=== PATIENT | female | born 1980 | race Caucasian/White ===

== ENCOUNTER 2016-06-22 08:25 | Emergency (ER) | payer OTHER ==
[2016-06-22] MEDS ORDERED: BABY ASPIRIN 81 MG CHEW PO ONE (08:29)
[2016-06-22] MEDS ORDERED: Pepcid 20 MG VIAL IV ONE ×2 (08:29→08:34)
[2016-06-22] MEDS ORDERED: Lopressor 25MG Tab PO ONE (08:29)
[2016-06-22] MEDS ORDERED: NITRO-BID 2% UD PACKETS TOP ONE (08:29)
[2016-06-22] MEDS ORDERED: Sodium Chloride 0.9% 1000 ML 1,000 ML IV SCH (08:30)
[2016-06-22] MEDS ORDERED: BABY ASPIRIN 81 MG CHEW ONE (08:34)
[2016-06-22] MEDS ORDERED: NITRO-BID 2% UD PACKETS ONE (08:34)
[2016-06-22] MEDS ORDERED: Lopressor 25MG Tab ONE (08:34)
[2016-06-22] MEDS ORDERED: Sodium Chloride 0.9% 1000 ML 1,000 ML ONE (08:35)
--- NOTE | 2016-06-22 08:36 | ERPHSYRPT ---
- History of Present Illness Time Seen by Provider: 06/22/16 08:29 Historian: patient, family Exam Limitations: no limitations Physician History: chest pain since Saturday; worse when breathes or lays down; non-productive cough; n o travel/11/26; no N&V; no sweats or fever; family ill with gi flu; no meds take for pain; getting worse; no prior hx; strong family hx of heart Timing/Duration: today (worse), day(s) (3), gradual onset, worse Activities at Onset: rest Quality: aching, burning Location: substernal Chest Pain Radiation: no radiation Severity of Pain-Max: severe (7/10) Severity of Pain-Current: moderate (6/10) Modifying Factors: Improves With: breathing (aggravate), coughing (worsens), lying down (worsens) Associated Symptoms: heartburn, cough, hurts to breathe Prior Chest Pain/Cardiac Workup: no prior chest pain Nitro Today/Relief: no nitro taken today, provided by ED Aspirin Treatment Today: no aspirin today, provided by ED Allergies/Adverse Reactions: No Known Drug Allergies Allergy (Verified 06/22/16 08:38) Home Medications: Metoprolol Tartrate 25 mg [Lopressor 25MG Tab] 25 mg PO DAILY 04/03/14 [ History] - Review of Systems Constitutional: No Symptoms Eyes: No Symptoms Ears, Nose, & Throat: No Symptoms Respiratory: Cough, No Cyanosis, No Dyspnea, No Wheezing Cardiac: Chest Pain, No Edema, No Palpitations, No Syncope Abdominal/Gastrointestinal: No Abdominal Pain, No Nausea, No Vomiting, No Diarrhea Genitourinary Symptoms: No Symptoms Musculoskeletal: No Symptoms Skin: No Symptoms Neurological: No Symptoms Psychological: No Symptoms Endocrine: No Symptoms Hematologic/Lymphatic: No Symptoms Immunological/Allergic: No Symptoms - Past Medical History Pertinent Past Medical History: Yes (stroke) Neurological History: Stroke ENT History: No Pertinent History Cardiac History: Other Respiratory History: No Pertinent History Endocrine Medical History: No Pertinent History Musculoskeletal History: Fibromyalgia GI Medical History: No Pertinent History History: No Pertinent History Psycho-Social History: No Pertinent History Female Reproductive Disorders: No Pertinent History Other Medical History: protien c defficiency, mutated blood genes. - Past Surgical History Past Surgical History: Yes (, breast bx) Neuro Surgical History: No Pertinent History Cardiac: No Pertinent History Respiratory: No Pertinent History Gastrointestinal: No Pertinent History Genitourinary: No Pertinent History Musculoskeletal: No Pertinent History Female Surgical History: Section - Social History Smoking Status: Former smoker How long have you smoked: quit 2007 Exposure to second hand smoke: No Alcohol Use: Socially Drug Use: none Significant Family History: heart disease, hypertension - Female History Hx Now: No - Physical Exam General Appearance: moderate distress, alert Eye Exam: PERRL/EOMI, eyes nml inspection, No photophobia Ears, Nose, Throat Exam: normal ENT inspection, TMs normal, pharynx normal, moist mucous membranes Neck Exam: normal inspection, non-tender, supple, full range of motion, No meningismus, No carotid bruit, No JVD Respiratory Exam: normal breath sounds, lungs clear, airway intact, No chest tenderness, No respiratory distress Cardiovascular Exam: regular rate/rhythm, normal heart sounds, normal peripheral pulses, capillary refill <2 sec, No murmur, No friction rub Gastrointestinal/Abdomen Exam: soft, normal bowel sounds, No tenderness, No distention, No guarding, No pulsatile mass, No organomegaly Pelvic Exam: not done Rectal Exam: deferred Back Exam: normal inspection, normal range of motion, No CVA tenderness, No rash Extremity Exam: normal inspection, normal range of motion, pelvis stable, No stew's sign, No pedal edema Neurologic Exam: alert, oriented x 3, cooperative, assessment rn II-XII nml as tested, normal mood/affect, nml cerebellar function, nml station & gait, sensation nml Skin Exam: normal color, warm, dry, No rash, No cyanosis SpO2 Interpretation: normal SpO2: 99 Oxygen Delivery: Room Air - Course Nursing assessment & vital signs reviewed: Yes EKG Interpreted by Me: RATE (92), Sinus Rhythm, NORMAL AXIS, NORMAL INTERVALS, NORMAL QRS, NORMAL ST-T, Other (no change from old ekg done 03-29-14) Rhythm Strip: Rate (92), Normal Sinus Rhythm - Radiology Exams Chest X-ray Interpretation: Reviewed by me, Teleradiologist Report, Negative, No Pneumonia, No Pneumothorax, Nml Heart Size, No Infiltrates, Nml Mediastinum Ordered Tests: Active Orders 24 hr Category Date Time Status Telecommunications Field Technician STAT Care 06/22/16 08:29 Active EKG-ER Only STAT Care 06/22/16 08:29 Active IV Insertion STAT Care 06/22/16 08:29 Active Oxygen-ED Only NASAL CANNULA 2 lpm Care 06/22/16 08:29 Active Pulse Oximetry (ED) STAT Care 06/22/16 08:29 Active Re-Check Vital Signs STAT Care 06/22/16 08:29 Active CHEST 1 VIEW (PORTABLE) Stat Exams 06/22/16 08:30 Completed CBC W DIFF Stat Lab 06/22/16 08:30 Completed CMP Stat Lab 06/22/16 08:30 Completed D-DIMER QUANTITATION Stat Lab 06/22/16 08:30 Completed NT PRO BNP Stat Lab 06/22/16 08:30 Completed PROTIME WITH INR Stat Lab 06/22/16 08:30 Completed TROPONIN Q3H Lab 06/22/16 08:30 Completed TROPONIN Q3H Lab 06/22/16 11:30 Ordered TROPONIN Q3H Lab 06/22/16 14:30 Ordered TROPONIN Q3H Lab 06/22/16 17:30 Ordered TROPONIN Q3H Lab 06/22/16 20:30 Ordered Medication Summary Generic Name Dose Route Start Last Admin Trade Name Freq PRN Reason Stop Dose Admin Sodium Chloride 1,000 mls @ 50 mls/hr 06/22/16 08:30 06/22/16 08:36 Sodium Chloride 0.9% 1000 Ml IV 07/22/16 08:29 50 mls/hr .Q20H RUTH Administration Discontinued Medications Generic Name Dose Route Start Last Admin Trade Name Freq PRN Reason Stop Dose Admin Aspirin 324 mg 06/22/16 08:29 06/22/16 08:37 Baby Aspirin 81 Mg Chew PO 06/22/16 08:30 324 mg STAT ONE Administration Aspirin Confirm 06/22/16 08:34 Baby Aspirin 81 Mg Chew Administered 06/22/16 08:35 Dose 324 mg .ROUTE .STK-MED ONE Famotidine 20 mg 06/22/16 08:29 06/22/16 08:37 Pepcid 20 Mg Vial IV 06/22/16 08:30 20 mg STAT ONE Administration Famotidine Confirm 06/22/16 08:34 Pepcid 20 Mg Vial Administered 06/22/16 08:35 Dose 20 mg IV .STK-MED ONE Sodium Chloride Confirm 06/22/16 08:35 Sodium Chloride 0.9% 1000 Ml Administered 06/22/16 08:36 Dose 1,000 mls @ ud .ROUTE .STK-MED ONE Metoprolol Tartrate 25 mg 06/22/16 08:29 06/22/16 08:37 Lopressor 25mg Tab PO 06/22/16 08:30 25 mg STAT ONE Administration Metoprolol Tartrate Confirm 06/22/16 08:34 Lopressor 25mg Tab Administered 06/22/16 08:35 Dose 25 mg .ROUTE .STK-MED ONE Nitroglycerin 1 gm 06/22/16 08:29 06/22/16 08:37 Nitro-Bid 2% Ud Packets TOP 06/22/16 08:30 1 gm STAT ONE Administration Nitroglycerin Confirm 06/22/16 08:34 Nitro-Bid 2% Ud Packets Administered 06/22/16 08:35 Dose 1 gm .ROUTE .STK-MED ONE Lab/Rad Data: Laboratory Result Diagrams 06/22/16 08:30 06/22/16 08:30 Laboratory Results 06/22/16 06/22/16 06/22/16 Range/Units 08:30 08:30 08:30 WBC (4.0-10.5) K/mm3 RBC (4.1-5.4) M/mm3 Hgb (12.0-16.0) gm/dl Hct (35-47) % MCV (78-100) fl MCH (26-32) pg MCHC (32-36) g/dl RDW (11.5-14.0) % Plt Count (150-450) K/mm3 MPV (6-9.5) fl Gran % (36.0-66.0) % Lymphocytes % (24.0-44.0) % Monocytes % (0.0-12.0) % Eosinophils % (0.00-5.0) % Basophils % (0.0-0.4) % Basophils # (0-0.4) INR 1.09 (0.8-3.0) D-Dimer 0.237 (0.00-0.49) mg/L Sodium 139 (136-145) mEq/L Potassium 4.2 (3.5-5.1) mEq/L Chloride 102 (98-107) mEq/L Carbon Dioxide 23.1 (21-32) mEq/L Anion Gap 17.7 H (5-15) MEQ/L BUN 11 (9-20) mg/dL Creatinine 0.67 (0.55-1.30) mg/dl Estimated GFR > 60 ML/MIN Glucose 100 (70-110) MG/DL Calcium 9.4 (8.5-10.1) mg/dL Total Bilirubin 0.4 (0.2-1.0) mg/dL AST 26 (15-37) U/L ALT 27 (12-78) U/L Alkaline Phosphatase 78 (46-116) U/L Troponin I < 0.017 (0.000-0.056) ng/ml NT-Pro-B Natriuret Pep < 5.0 (0-125) pg/ml Serum Total Protein 7.6 (6.4-8.2) gm/dL Albumin 4.2 (3.4-5.0) g/dL 06/22/16 Range/Units 08:30 WBC 9.1 (4.0-10.5) K/mm3 RBC 4.35 (4.1-5.4) M/mm3 Hgb 13.5 (12.0-16.0) gm/dl Hct 40.9 (35-47) % MCV 94.0 (78-100) fl MCH 31.0 (26-32) pg MCHC 33.0 (32-36) g/dl RDW 12.8 (11.5-14.0) % Plt Count 233 (150-450) K/mm3 MPV 11.2 H (6-9.5) fl Gran % 74.4 H (36.0-66.0) % Lymphocytes % 14.2 L (24.0-44.0) % Monocytes % 10.1 (0.0-12.0) % Eosinophils % 1.2 (0.00-5.0) % Basophils % 0.1 (0.0-0.4) % Basophils # 0.01 (0-0.4) INR (0.8-3.0) D-Dimer (0.00-0.49) mg/L Sodium (136-145) mEq/L Potassium (3.5-5.1) mEq/L Chloride (98-107) mEq/L Carbon Dioxide (21-32) mEq/L Anion Gap (5-15) MEQ/L BUN (9-20) mg/dL Creatinine (0.55-1.30) mg/dl Estimated GFR ML/MIN Glucose (70-110) MG/DL Calcium (8.5-10.1) mg/dL Total Bilirubin (0.2-1.0) mg/dL AST (15-37) U/L ALT (12-78) U/L Alkaline Phosphatase (46-116) U/L Troponin I (0.000-0.056) ng/ml NT-Pro-B Natriuret Pep (0-125) pg/ml Serum Total Protein (6.4-8.2) gm/dL Albumin (3.4-5.0) g/dL reviewed - Progress Progress: improved (after meds), re-examined (afdter meds and xr) Air Movement: good Progress Note: 06/22/16 08:37 EKG done and wnl; no acute changes; vs ok; IV started; )2 applied, meds ordered , xr and lab pending; will monitor and recheck 06/22/16 08:46 cbc wnl; cxr pending; meds just given will monitor and recheck 06/22/16 09:14 rechecked; vs ok; pain improving but still present; slight tenderness with palpation left 2 & 3rd Costosternal margin; D dimer and INR wnl; CXR NAD; other labs pending; will continue to monitor and recheck 06/22/16 09:29 rechecked and smiling and improved; troponin wnl; discussed treatment plan, answered questions; instructions given to stop smoking Blood Culture(s) Obtained: No Antibiotics given: No Counseled pt/family regarding: lab results, diagnosis, need for follow-up, rad results, smoking cessation - Departure Time of Disposition: 09:30 Departure Disposition: Home Clinical Impression: Chest pain made worse by breathing Condition: Good Critical Care Time: No Referrals: ABBEY SHEA [Primary Care Provider] - Instructions: Chest Pain Additional Instructions: stop smoking; rest; wear a mask in cold weather, hydrate; take meds; FU LMD Follow-up with family doctor as directed. Call for appointment. Return if any problems. If you smoke please stop. Call or follow up with your family doctor for assistance if you need it to stop. Please wear your seatbelt when driving. Have a nice day. Thank you for allowing us to participate in your care today. :o) Dr Stephen Luu Prescriptions: Naproxen Sodium [Anaprox Ds] 550 mg PO Q8H PRN PRN #20 tablet PRN Reason: Pain
[2016-06-22 08:41] LABS: BASOPHIL % 0.1 % (0.0-0.4); Eosinophil % 1.2 % (0.00-5.0); Granulocytes % 74.4 % (36.0-66.0); Lymphocytes % 14.2 % (24.0-44.0); Mean Platelet Volume 11.2 fl (6-9.5); Monocytes % 10.1 % (0.0-12.0); Platelet Count 233 K/mm3 (150-450); Red Blood Count 4.35 M/mm3 (4.1-5.4); Red Cell Distribution Width 12.8 % (11.5-14.0); White Blood Count 9.1 K/mm3 (4.0-10.5)
[2016-06-22 08:47] VITALS: O2SAT 99
[2016-06-22 09:02] LABS: INR 1.09 (0.8-3.0); PROTIME 12.2 SECONDS (9.95-12.35)
--- NOTE | 2016-06-22 09:02 | XRAY ---
Indication: Chest pain. Comparison: None Portable chest demonstrates normal heart, lungs, and bony thorax.
[2016-06-22 09:05] VITALS: BP 117/73; PULSE 86
[2016-06-22 09:12] LABS: ALBUMIN 4.2 g/dL (3.4-5.0); ALKALINE PHOSPHATASE 78 U/L (46-116); ANION GAP 17.7 MEQ/L (5-15); BILIRUBIN,TOTAL 0.4 mg/dL (0.2-1.0); BLOOD UREA NITROGEN 11 mg/dL (9-20); CHLORIDE 102 mEq/L (98-107); Carbon Dioxide 23.1 mEq/L (21-32); Glucose 100 MG/DL (70-110); Potassium 4.2 mEq/L (3.5-5.1); SGOT/AST 26 U/L (15-37); SGPT/ALT 27 U/L (12-78); SODIUM 139 mEq/L (136-145); Total Protein 7.6 gm/dL (6.4-8.2)
== END 2016-06-22 09:44 | disposition home or self-care (01) ==
LOC: ED 08:25
DX: R07.1 Chest pain on breathing (principal)
CPT/HCPCS: 36000; 36415; 71010; 80053; 83880; 84484; 85025; 85379; 85610; 93005; 93041; 96360; 96374; 99283; 99284; 99285

== ENCOUNTER 2021-08-27 20:58 | Emergency (ER) | payer OTHER ==
[2021-08-27] MEDS ORDERED: DUONEB 0.5-3 MG/3 ml Neb IH ONE ×2 (21:53→22:24)
--- NOTE | 2021-08-27 22:00 | ERPHSYRPT ---
- History of Present Illness Time Seen by Provider: 08/27/21 21:04 Patient Subjective Stated Complaint: Pt states " I was diagnosed by my family doctor with anemia a couple weeks ago. Today I started feeling short of breath when I got up to do stuff around the house." Triage Nursing Assessment: Pt alert and oriented x3, pt denies chest pain or any cardiac issues, Pt c/o shortness of breath upon excertion that started today and weakness, pt was seen at Dr. Tadeo's office and did blood work. According to patient the her hemoglobin was 9.8 and had low iron count, pt was put on a vitamin D pill that she takes weekly and an iron pill that she takes daily, skin color warm, pink, and dry, denies pain at this time Physician History: 41 years old female with history of chronic anemia presented in the ER with chief complaint of shortness of breath for the last few days. Patient reports getting short of breath with activity which is lately getting worse and better with resting. Patient denies any chest pain pressure tightness, wheezing. Denies any cough or fever/chills. Timing/Duration: gradual onset, worse Activities at Onset: activity Severity of Dyspnea-Max: moderate Severity of Dyspnea-Current: moderate Modifying Factors: Improves With: rest. Worsens With: activity Associated Symptoms: No wheezing, No heaviness, No painful breathing, No productive cough, No tightness Allergies/Adverse Reactions: No Known Drug Allergies Allergy (Verified 06/22/16 08:38) Home Medications: Cholecalciferol (Vitamin D3) [Vitamin D] 08/27/21 [History] Iron 65 mg PO DAILY 08/27/21 [History] Hx Tetanus, Diphtheria Vaccination/Date Given: No (4 YRS AGO) Hx Influenza Vaccination/Date Given: No Hx Pneumococcal Vaccination/Date Given: No Immunizations Up to Date: Yes Travel Risk - International Travel Have you traveled outside of the country in past 3 weeks: No - Coronavirus Screening Are you exhibiting any of the following symptoms?: No Close contact with a COVID-19 positive Pt in past 14-21 Days: No - Vaccine Status Have you recieved a Covid-19 vaccination: No - Review of Systems Constitutional: No Symptoms Eyes: No Symptoms Ears, Nose, & Throat: No Symptoms Respiratory: Dyspnea, Dyspnea on Exertion ([place]) Cardiac: No Symptoms Abdominal/Gastrointestinal: No Symptoms Genitourinary Symptoms: No Symptoms Musculoskeletal: No Symptoms Skin: No Symptoms Neurological: No Symptoms Psychological: No Symptoms Endocrine: No Symptoms Hematologic/Lymphatic: No Symptoms Immunological/Allergic: No Symptoms - Past Medical History Pertinent Past Medical History: Yes (stroke) Neurological History: Stroke ENT History: No Pertinent History Cardiac History: Other Respiratory History: No Pertinent History Endocrine Medical History: No Pertinent History Musculoskeletal History: Fibromyalgia GI Medical History: No Pertinent History History: No Pertinent History Psycho-Social History: No Pertinent History Female Reproductive Disorders: No Pertinent History Other Medical History: protien c defficiency, mutated blood genes, tachycardia - Past Surgical History Past Surgical History: Yes (, breast bx) Neuro Surgical History: No Pertinent History Cardiac: No Pertinent History Respiratory: No Pertinent History Gastrointestinal: No Pertinent History Genitourinary: No Pertinent History Musculoskeletal: No Pertinent History Female Surgical History: Section - Social History Smoking Status: Current every day smoker How long have you smoked: quit 2007 Exposure to second hand smoke: No Alcohol Use: Socially Drug Use: none Patient Lives Alone: No Significant Family History: heart disease, hypertension - Female History Hx Last Menstrual Period: 08/27/2021 Hx Now: No - Nursing Vital Signs Nursing Vital Signs: Initial Vital Signs Temperature 99.0 F 08/27/21 21:03 Pulse Rate 112 H 08/27/21 21:03 Respiratory Rate 26 H 08/27/21 21:03 Blood Pressure 162/91 08/27/21 21:03 O2 Sat by Pulse Oximetry 99 08/27/21 21:03 Pain Scale Pain Intensity 0 - Physical Exam General Appearance: no apparent distress, alert, anxiety Eye Exam: PERRL/EOMI, eyes nml inspection Ears, Nose, Throat Exam: hearing grossly normal, normal ENT inspection, normal pharynx Neck Exam: normal inspection, non-tender, supple, full range of motion Respiratory Exam: normal breath sounds, lungs clear Cardiovascular/Chest Exam: normal heart sounds, regular rate/rhythm Abdominal/Gastrointestinal Exam: soft, normal bowel sounds, No tenderness Extremity Exam: non-tender, normal range of motion Neurologic Exam: alert, oriented x 3, cooperative Skin Exam: normal color SpO2 Interpretation: normal SpO2: 98 O2 Delivery: Room Air - Course EKG Interpreted by Me: RATE (106), Sinus Tach, NORMAL AXIS, NORMAL INTERVALS, Non-specific ST Changes Ordered Tests: Active Orders 24 hr Category Date Time Status IV Insertion STAT Care 08/27/21 21:14 Completed CHEST 1 VIEW (PORTABLE) Stat Exams 08/27/21 21:55 Taken CHEST WITH CONTRAST [CT] Routine Exams 08/28/21 00:41 Taken CBC W DIFF Stat Lab 08/27/21 22:21 Completed CMP Stat Lab 08/27/21 22:21 Completed D-DIMER QUANTITATIVE Stat Lab 08/27/21 22:00 Completed MAGNESIUM Stat Lab 08/27/21 22:21 Completed NT PRO BNP Stat Lab 08/27/21 22:21 Completed TROPONIN Q3H Lab 08/27/21 22:21 Completed TROPONIN Q3H Lab 08/28/21 01:06 Completed Respiratory Therapy Assessment DAILY RT 08/27/21 22:27 Completed Medication Summary Discontinued Medications Generic Name Dose Route Start Last Admin Trade Name Freq PRN Reason Stop Dose Admin Albuterol/Ipratropium 3 ml 08/27/21 21:53 08/27/21 22:25 Ipratropium/Albuterol Sulfate 3 Ml Ampul.Neb IH 08/27/21 21:54 3 ml STAT ONE Administration Albuterol/Ipratropium Confirm 08/27/21 22:24 Ipratropium/Albuterol Sulfate 3 Ml Ampul.Neb Administered 08/27/21 22:25 Dose 3 ml IH .STK-MED ONE Lab/Rad Data: Laboratory Result Diagrams 08/27/21 22:21 08/27/21 22:21 Laboratory Results 08/28/21 08/27/21 08/27/21 Range/Units 01:06 22:21 22:21 WBC (4.0-10.5) K/mm3 RBC (4.1-5.4) M/mm3 Hgb (12.0-16.0) gm/dl Hct (35-47) % MCV (78-100) fl MCH (26-32) pg MCHC (32-36) g/dl RDW (11.5-14.0) % Plt Count (150-450) K/mm3 MPV (7.5-11.0) fl Gran % (36.0-66.0) % Eos # (Auto) (0-0.5) Absolute Lymphs (auto) (1.0-4.6) Absolute Monos (auto) (0.0-1.3) Lymphocytes % (24.0-44.0) % Monocytes % (0.0-12.0) % Eosinophils % (0.00-5.0) % Basophils % (0.0-0.4) % Absolute Granulocytes (1.4-6.9) Basophils # (0-0.4) D-Dimer (215-500) ng/mL Sodium 140 (137-145) mmol/L Potassium 3.6 (3.5-5.1) mmol/L Chloride 106 (98-107) mmol/L Carbon Dioxide 20 L (22-30) mmol/L Anion Gap 17.4 H (5-15) MEQ/L BUN 15 (7-17) mg/dL Creatinine 0.69 (0.52-1.04) mg/dL Estimated GFR > 60.0 ML/MIN Glucose 112 H (74-106) mg/dL Calcium 9.3 (8.4-10.2) mg/dL Magnesium 2.1 (1.6-2.3) mg/dL Total Bilirubin 0.30 (0.2-1.3) mg/dL AST 33 (14-36) U/L ALT 24 (0-35) U/L Alkaline Phosphatase 80 (38-126) U/L Troponin I < 0.012 < 0.012 (0.000-0.034) ng/mL NT-Pro-B Natriuret Pep 26.8 (0-450) pg/mL Serum Total Protein 7.2 (6.3-8.2) g/dL Albumin 4.3 (3.5-5.0) g/dL 08/27/21 08/27/21 Range/Units 22:21 22:00 WBC 7.6 (4.0-10.5) K/mm3 RBC 3.96 L (4.1-5.4) M/mm3 Hgb 10.0 L (12.0-16.0) gm/dl Hct 32.5 L (35-47) % MCV 82.1 (78-100) fl MCH 25.3 L (26-32) pg MCHC 30.8 L (32-36) g/dl RDW 20.2 H (11.5-14.0) % Plt Count 346 (150-450) K/mm3 MPV 11.1 H (7.5-11.0) fl Gran % 57.0 (36.0-66.0) % Eos # (Auto) 0.12 (0-0.5) Absolute Lymphs (auto) 2.45 (1.0-4.6) Absolute Monos (auto) 0.69 (0.0-1.3) Lymphocytes % 32.2 (24.0-44.0) % Monocytes % 9.1 (0.0-12.0) % Eosinophils % 1.6 (0.00-5.0) % Basophils % 0.1 (0.0-0.4) % Absolute Granulocytes 4.34 (1.4-6.9) Basophils # 0.01 (0-0.4) D-Dimer 555 H* (215-500) ng/mL Sodium (137-145) mmol/L Potassium (3.5-5.1) mmol/L Chloride (98-107) mmol/L Carbon Dioxide (22-30) mmol/L Anion Gap (5-15) MEQ/L BUN (7-17) mg/dL Creatinine (0.52-1.04) mg/dL Estimated GFR ML/MIN Glucose (74-106) mg/dL Calcium (8.4-10.2) mg/dL Magnesium (1.6-2.3) mg/dL Total Bilirubin (0.2-1.3) mg/dL AST (14-36) U/L ALT (0-35) U/L Alkaline Phosphatase (38-126) U/L Troponin I (0.000-0.034) ng/mL NT-Pro-B Natriuret Pep (0-450) pg/mL Serum Total Protein (6.3-8.2) g/dL Albumin (3.5-5.0) g/dL - Progress Progress: improved Air Movement: good Progress Note: 08/28/21 41 years old is evaluated for shortness of breath. EKG showed sinus tach without any ST elevation and negative troponin x2. Chest x-ray negative for any acute cardiopulmonary findings. Mildly elevated D-dimer and CTA is negative. given breathing treatment and feeling better on reevaluation. Low heart score, do not think she needs any other work-up and is stable for dis charge with outpatient follow-up with primary care and cardiology. Discussed signs symptoms of worsening needing return to ER which she seems understanding. Blood Culture(s) Obtained: No Antibiotics given: No Counseled pt/family regarding: lab results, diagnosis, need for follow-up, rad results, smoking cessation - Departure Departure Disposition: Home Clinical Impression: Dyspnea Condition: Stable Critical Care Time: No Referrals: ABBEY TADEO [Primary Care Provider] - Follow up/PCP as directed (1-2 days for reevaluation) ERICKA MARTINEZ MD [NON-STAFF PHY W/O PRIVILEGES] - Follow up/PCP as directed (Call tomorrow for appointment) Instructions: Shortness of Breath (Dyspnea) (DC), Exacerbation of COPD (DC) Additional Instructions: Do not smoke. Follow-up with primary care/cardiology for reevaluation. Return to ER for worsening shortness of breath or if develop chest pain. Prescriptions: Albuterol Sulfate [Albuterol Sulfate Hfa] 8.5 gm IH Q6H PRN 7 Days #1 inh PRN Reason: Cough
[2021-08-27 22:28] LABS: Absolute Neutrophil Ct (ANC) 4.34 (1.4-6.9); Basophil (Absolute #) 0.01 (0-0.4); Eosinophil % 1.6 % (0.00-5.0); Eosinophil (Absolute #) 0.12 (0-0.5); Hematocrit 32.5 % (35-47); Lymphocyte (Absolute #) 2.45 (1.0-4.6); Lymphocytes % 32.2 % (24.0-44.0); Mean Cell Volume 82.1 fl (78-100); Mean Corpuscular Hemoglobin 25.3 pg (26-32); Mean Corpuscular Hgb Concent. 30.8 g/dl (32-36); Mean Platelet Volume 11.1 fl (7.5-11.0); Monocyte (Absolute #) 0.69 (0.0-1.3); Monocytes % 9.1 % (0.0-12.0); Platelet Count 346 K/mm3 (150-450); Red Blood Count 3.96 M/mm3 (4.1-5.4); Red Cell Distribution Width 20.2 % (11.5-14.0); White Blood Count 7.6 K/mm3 (4.0-10.5)
[2021-08-27 22:52] LABS: ALBUMIN 4.3 g/dL (3.5-5.0); ALKALINE PHOSPHATASE 80 U/L (38-126); ANION GAP 17.4 MEQ/L (5-15); BLOOD UREA NITROGEN 15 mg/dL (7-17); CHLORIDE 106 mmol/L (98-107); Calcium 9.3 mg/dL (8.4-10.2); Carbon Dioxide 20 mmol/L (22-30); Creatinine 1 0.69 mg/dL (0.52-1.04); EST GLOMERULAR FILTRATION RATE > 60.0 ML/MIN; Glucose 112 mg/dL (74-106); MAGNESIUM 2.1 mg/dL (1.6-2.3); NT PRO BNP 26.8 pg/mL (0-450); Potassium 3.6 mmol/L (3.5-5.1); SGOT/AST 33 U/L (14-36); SGPT/ALT 24 U/L (0-35); SODIUM 140 mmol/L (137-145); Total Protein 7.2 g/dL (6.3-8.2)
[2021-08-28 01:57] VITALS: BP 111/80; PULSE 89
[2021-08-28 06:22] VITALS: O2SAT 98
--- NOTE | 2021-08-28 09:04 | XRAY ---
Indication: Short of breath. Elevated d-dimer. Multiple contiguous axial images obtained through the chest using 80 cc Isovue 370 contrast and PE protocol. Comparison: None There is suboptimal opacification of the pulmonary arteries limiting evaluation for pulmonary embolus. No central pulmonary embolus. Heart not enlarged. Aorta is normal in course and caliber. No pathologic mediastinal/hilar lymphadenopathy. Lungs demonstrates minimal bilateral dependent atelectasis and minimal biapical subpleural cystic changes. Peripheral right lower lobe demonstrates 5 mm indeterminate noncalcified nodule. Bony thorax intact. Limited upper abdomen demonstrates mild fatty liver. Impression: 1. Pulmonary embolus evaluation limited by suboptimal contrast opacification. No obvious central pulmonary embolus. 2. Indeterminant right lower lobe noncalcified micronodule. Outside comparison studies recommended if available. If not, follow-up per Fleischner guidelines recommend. 3. Mild fatty liver. Comment: Preliminary interpretation made by [facility]. No critical discrepancy.
--- NOTE | 2021-08-28 09:06 | XRAY ---
Indication: Short of breath. Comparison: June 22, 2016. Portable apical lordotic chest again demonstrates normal heart, lungs, and bony thorax.
== END 2021-08-28 01:57 | disposition home or self-care (01) ==
LOC: ED 20:58
DX: R06.00 Dyspnea, unspecified (principal); Z79.899 Other long term (current) drug therapy; Z72.0 Tobacco use
CPT/HCPCS: 36000; 36415; 71045; 71260; 80053; 83735; 83880; 84484; 85025; 85379; 94640; 99284; A9270-GY

== ENCOUNTER 2024-02-12 15:34 | Emergency (ER) | payer OTHER ==
--- NOTE | 2024-02-12 15:51 | ERPHSYRPT ---
- History of Present Illness Time Seen by Provider: 02/12/24 15:51 Source: patient, family Exam Limitations: no limitations Physician History: This is a 43-year-old white female patient of Dr. Tadeo who began having some lower abdominal pain that began yesterday. Patient woke up today and went to [facility] and because of her symptoms they ordered a CT scan of the abdomen pelvis which showed an enlarged uterus. Patient has a history of ovarian cyst. There was no evidence of ovarian cyst today on the CT scan. There was no mention of free fluid intra-abdominal he or in the pelvis. The appendix was visualized and was normal. The pain was worsening and therefore she came to the emergency department. Timing/Duration: yesterday Activites at Onset: none Quality: cramping, sharpness Onset Location: abdominal pain (Suprapubic), pelvic pain Pain Radiation: none Severity of Pain-Max: moderate Severity of Pain-Current: moderate Prior abdominal problems: none Modifying Factors: Improves With: nothing Associated Symptoms: abdominal pain (Pubic and pelvic) Allergies/Adverse Reactions: ferrous sulfate Allergy (Verified 02/12/24 15:58) Home Medications: Atorvastatin Calcium 10 mg PO DAILY 02/12/24 [History] Ergocalciferol (Vitamin D2) [Vitamin D2] 1,250 mcg PO WEEKLY 02/12/24 [History] Ferrous Gluconate 324 mg PO DAILY 02/12/24 [History] Hx Tetanus, Diphtheria Vaccination/Date Given: No (4 YRS AGO) Hx Influenza Vaccination/Date Given: No Hx Pneumococcal Vaccination/Date Given: No Travel Risk - International Travel Have you traveled outside of the country in past 3 weeks: No - Emerging Infectious Disease Are you exhibiting symptoms associated with any current EIDs: No - Review of Systems Constitutional: No Symptoms Eyes: No Symptoms Ears, Nose, & Throat: No Symptoms Respiratory: No Symptoms Cardiac: No Symptoms Abdominal/Gastrointestinal: Abdominal Pain (Pubic and pelvic) Genitourinary Symptoms: No Symptoms Musculoskeletal: No Symptoms Skin: No Symptoms Neurological: No Symptoms Psychological: No Symptoms Endocrine: No Symptoms Hematologic/Lymphatic: No Symptoms Immunological/Allergic: No Symptoms All Other Systems: Reviewed and Negative - Past Medical History Pertinent Past Medical History: Yes (stroke) Neurological History: Stroke ENT History: No Pertinent History Cardiac History: Other Respiratory History: No Pertinent History Endocrine Medical History: No Pertinent History Musculoskeletal History: Fibromyalgia GI Medical History: No Pertinent History History: No Pertinent History Psycho-Social History: No Pertinent History Female Reproductive Disorders: No Pertinent History Other Medical History: protien c defficiency, mutated blood genes, tachycardia - Past Surgical History Past Surgical History: Yes (, breast bx) Neuro Surgical History: No Pertinent History Cardiac: No Pertinent History Respiratory: No Pertinent History Gastrointestinal: No Pertinent History Genitourinary: No Pertinent History Musculoskeletal: No Pertinent History Female Surgical History: Section Significant Family History: heart disease, hypertension - Social History Smoking Status: Current every day smoker How long have you smoked: quit 2007 Exposure to second hand smoke: No Alcohol Use: Socially Drug Use: none Patient Lives Alone: No - Nursing Vital Signs Nursing Vital Signs: Initial Vital Signs Temperature 99.2 F 02/12/24 15:51 Pulse Rate 113 H 02/12/24 15:51 Blood Pressure 131/77 02/12/24 15:51 O2 Sat by Pulse Oximetry 99 02/12/24 15:51 Pain Scale Pain Intensity [Lower Medial 8 Abdomen] Pain Intensity 8 - Physical Exam General Appearance: mild distress, alert, anxiety Eye Exam: PERRL/EOMI, post op pupil defect (L) Ears, Nose, Throat Exam: normal ENT inspection, moist mucous membranes Neck Exam: normal inspection, non-tender, supple, full range of motion Respiratory Exam: normal breath sounds, lungs clear, airway intact, No chest tenderness, No respiratory distress Cardiovascular Exam: tachycardia Gastrointestinal/Abdomen Exam: soft, normal bowel sounds, tenderness (Mild tenderness suprapubic region), guarding (Mild tenderness suprapubic region), No pulsatile mass Pelvic Exam: not done Rectal Exam: not done Back Exam: normal inspection, normal range of motion, No CVA tenderness, No vertebral tenderness Extremity Exam: normal inspection, normal range of motion, pelvis stable Neurologic Exam: alert, oriented x 3, cooperative, gm video II-XII nml as tested, nml cerebellar function, nml station & gait, sensation nml Skin Exam: normal color, warm, dry Lymphatic Exam: No adenopathy SpO2 Interpretation: normal O2 Delivery: Room Air - Course Nursing assessment & vital signs reviewed: Yes Ordered Tests: Active Orders 24 hr Category Date Time Status IV Insertion STAT Care 02/12/24 16:08 Active PELVIS TRANS VAGINAL [US] Stat Exams 02/12/24 16:07 Taken AMYLASE Stat Lab 02/12/24 16:21 Received CBC W DIFF Stat Lab 02/12/24 16:21 Completed CMP Stat Lab 02/12/24 16:21 Received CULTURE,URINE Stat Lab 02/12/24 16:09 Received HCG QUALITATIVE, SERUM Stat Lab 02/12/24 16:21 Completed LIPASE Stat Lab 02/12/24 16:21 Received UA W/RFX UR CULTURE Stat Lab 02/12/24 16:09 Completed Medication Summary Discontinued Medications Generic Name Dose Route Start Last Admin Trade Name Saba PRN Reason Stop Dose Admin Hydromorphone HCl 1 mg 02/12/24 16:08 02/12/24 16:40 Hydromorphone 1 Mg/1ml Inj IV 02/12/24 16:09 1 mg STAT ONE Administration Hydromorphone HCl Confirm 02/12/24 16:38 Hydromorphone 1 Mg/1ml Inj Administered 02/12/24 16:39 Dose 1 mg .ROUTE .STK-MED ONE Ceftriaxone Sodium 1 gm in 100 mls @ 200 mls/hr 02/12/24 17:36 02/12/24 18:27 Rocephin 1 Gm / 100 Ml Nacl IV 02/12/24 18:05 Infused STAT ONE Infusion Ceftriaxone Sodium Confirm 02/12/24 17:43 Rocephin 1 Gm / 100 Ml Nacl Administered 02/12/24 17:44 Dose 1 gm in 100 mls @ ud IV .STK-MED ONE Ondansetron HCl 4 mg 02/12/24 16:08 02/12/24 16:40 Ondansetron Hcl 4 Mg/2 Ml Vial IV 02/12/24 16:09 4 mg STAT ONE Administration Ondansetron HCl Confirm 02/12/24 16:38 Ondansetron Hcl 4 Mg/2 Ml Vial Administered 02/12/24 16:39 Dose 4 mg .ROUTE .STK-MED ONE Lab/Rad Data: Laboratory Result Diagrams 02/12/24 16:21 02/12/24 16:21 Laboratory Results 02/12/24 02/12/24 02/12/24 Range/Units 16:21 16:21 16:21 WBC 18.5 H (3.98-10.04) x10^3/uL RBC 3.63 L (3.93-5.22) x10^6/uL Hgb 9.7 L (11.2-15.7) g/dL Hct 30.0 L (34.1-44.9) % MCV 82.6 (79.4-94.8) fL MCH 26.7 (25.6-32.2) pg MCHC 32.3 (32.2-35.5) g/dL RDW 15.0 H (11.7-14.4) % Plt Count 332 (182-369) x10^3/uL MPV 10.6 (9.4-12.3) fL Gran % 81.5 H (34.0-71.1) % Immature Gran % (Auto) 0.6 H (0.001-0.429) % Nucleat RBC Rel Count 0.0 (0.00-0.2) % Eos # (Auto) 0.02 L (0.04-0.36) x10^3/uL Immature Gran # (Auto) 0.11 H (0.001-0.031) x10^3u/L Absolute Lymphs (auto) 1.85 (1.18-3.74) x10^3/uL Absolute Monos (auto) 1.41 H (0.24-0.86) x10^3/uL Absolute Nucleated RBC 0.00 (0.00-0.012) x10^3u/L Lymphocytes % 10.0 L (19.3-51.7) % Monocytes % 7.6 (4.7-12.5) % Eosinophils % 0.1 L (0.7-5.8) % Basophils % 0.2 (0.1-1.2) % Absolute Granulocytes 15.10 H (1.56-6.13) x10^3/uL Basophils # 0.03 (0.01-0.08) x10^3/uL Sodium Direct 134 L (138-146) mmol/L Potassium 3.7 (3.5-4.9) mmol/L Chloride 106 (98-109) mmol/L Carbon Dioxide 20 L (24-29) mmol/L Venous BUN 11 (8-26) mg/dL Creatinine 0.8 (0.6-1.3) mg/dL Glucose 111 H (70-105) mg/dL Ionized Calcium 1.11 L (1.12-1.32) mmol/L Serum HCG, Qual NEGATIVE (NEGATIVE) Urine Color (Yellow) Urine Appearance (Clear) Urine pH (4.6-8.0) Ur Specific [place] (1.005-1.030) Urine Protein (Negative) Urine Glucose (UA) (Negative) mg/dL Urine Ketones (Negative) Urine Blood (Negative) Urine Nitrite (Negative) Urine Bilirubin (Negative) Urine Urobilinogen (0.2) mg/dL Ur Leukocyte Esterase (Negative) U Hyaline Cast (Auto) (0-2) /LPF Urine Microscopic RBC (0-5) /HPF Urine Microscopic WBC (0-5) /HPF Ur Epithelial Cells (None Seen) /HPF Urine Bacteria (None Seen) /HPF Urine Culture Reflexed (NO) 02/12/24 Range/Units 16:09 WBC (3.98-10.04) x10^3/uL RBC (3.93-5.22) x10^6/uL Hgb (11.2-15.7) g/dL Hct (34.1-44.9) % MCV (79.4-94.8) fL MCH (25.6-32.2) pg MCHC (32.2-35.5) g/dL RDW (11.7-14.4) % Plt Count (182-369) x10^3/uL MPV (9.4-12.3) fL Gran % (34.0-71.1) % Immature Gran % (Auto) (0.001-0.429) % Nucleat RBC Rel Count (0.00-0.2) % Eos # (Auto) (0.04-0.36) x10^3/uL Immature Gran # (Auto) (0.001-0.031) x10^3u/L Absolute Lymphs (auto) (1.18-3.74) x10^3/uL Absolute Monos (auto) (0.24-0.86) x10^3/uL Absolute Nucleated RBC (0.00-0.012) x10^3u/L Lymphocytes % (19.3-51.7) % Monocytes % (4.7-12.5) % Eosinophils % (0.7-5.8) % Basophils % (0.1-1.2) % Absolute Granulocytes (1.56-6.13) x10^3/uL Basophils # (0.01-0.08) x10^3/uL Sodium Direct (138-146) mmol/L Potassium (3.5-4.9) mmol/L Chloride (98-109) mmol/L Carbon Dioxide (24-29) mmol/L Venous BUN (8-26) mg/dL Creatinine (0.6-1.3) mg/dL Glucose (70-105) mg/dL Ionized Calcium (1.12-1.32) mmol/L Serum HCG, Qual (NEGATIVE) Urine Color Yellow (Yellow) Urine Appearance Cloudy A (Clear) Urine pH 8.0 (4.6-8.0) Ur Specific [place] 1.025 (1.005-1.030) Urine Protein 30 (Negative) Urine Glucose (UA) Negative (Negative) mg/dL Urine Ketones 15 A (Negative) Urine Blood Negative (Negative) Urine Nitrite Negative (Negative) Urine Bilirubin Negative (Negative) Urine Urobilinogen 1.0 A (0.2) mg/dL Ur Leukocyte Esterase Trace A (Negative) U Hyaline Cast (Auto) NONE SEEN (0-2) /LPF Urine Microscopic RBC 0-2 (0-5) /HPF Urine Microscopic WBC 3-5 (0-5) /HPF Ur Epithelial Cells Moderate A (None Seen) /HPF Urine Bacteria Rare A (None Seen) /HPF Urine Culture Reflexed YES (NO) - Progress Progress: improved, re-examined Air Movement: good Progress Note: 02/12/24 18:39 My medical decision making and the assignment of moderate complexity to this patient's medical issue today is based on review of the patient's past medical history, review of the patient's medication list, reviewed patient drug allergy list, history present illness and physical findings on examination. The workup in this patient includes placement of a intravenous line, infusion of normal saline solution, urinalysis, CBC, CMP, pelvic ultrasound. Differential diagnosis includes but is not limited to appendicitis, ruptured ovarian cyst, uterine fibroid, bowel obstruction train electronic technician provided me with the preliminary report of intrauterine fibroids. No evidence of any ovarian cyst. I interpreted the patient's laboratory data results. Patient has a significant urinary tract infection as well as a leukocytosis. Blood Culture(s) Obtained: No Antibiotics given: Yes Counseled pt/family regarding: lab results, diagnosis, need for follow-up, rad results Medical Desision Making - Independent Historian Additional History obtained from: Spouse - Diagnostic Testing Diagnostic test were ordered, analyzed, and reviewed by me: Yes Radiological Interpretation: Reviewed by me - Risk of complications The pt has a mod risk of morbidity or mortality based on: Need for prescription drug management - Departure Departure Disposition: Home Clinical Impression: Abdominal pain, Leukocytosis, Mild dehydration, UTI (urinary tract infection) Condition: Stable Critical Care Time: No Referrals: ABBEY TADEO [Primary Care Provider] - Follow up/PCP as directed Additional Instructions: Drink plenty of fluids. Take your pain medicine and antibiotics as prescribed. 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 Prescriptions: Hydrocodone/APAP 5/325 [[place] 5/325 mg] 1 each PO Q6H PRN PRN #10 tablet MDD 4 PRN Reason: Pain Cefdinir 300 mg PO BID #14 cap
[2024-02-12 15:58] VITALS: TEMP 99.2
[2024-02-12 16:23] LABS: BASOPHIL % 0.2 % (0.1-1.2); Basophil (Absolute #) 0.03 x10^3/uL (0.01-0.08); Eosinophil % 0.1 % (0.7-5.8); Eosinophil (Absolute #) 0.02 x10^3/uL (0.04-0.36); Hemoglobin 9.7 g/dL (11.2-15.7); IMMATURE GRAN # 0.11 x10^3u/L (0.001-0.031); IMMATURE GRAN % 0.6 % (0.001-0.429); Lymphocyte (Absolute #) 1.85 x10^3/uL (1.18-3.74); Mean Cell Volume 82.6 fL (79.4-94.8); Mean Corpuscular Hemoglobin 26.7 pg (25.6-32.2); Mean Corpuscular Hgb Concent. 32.3 g/dL (32.2-35.5); Mean Platelet Volume 10.6 fL (9.4-12.3); Monocyte (Absolute #) 1.41 x10^3/uL (0.24-0.86); Monocytes % 7.6 % (4.7-12.5); Neutrophil % 81.5 % (34.0-71.1); Platelet Count 332 x10^3/uL (182-369); Red Blood Count 3.63 x10^6/uL (3.93-5.22); White Blood Count 18.5 x10^3/uL (3.98-10.04)
[2024-02-12 16:31] LABS: Appearance Cloudy (Clear); Bacteria Rare /HPF (None Seen); Bilirubin Negative (Negative); Blood Negative (Negative); Epithelial Cells Moderate /HPF (None Seen); Glucose, Urine Negative (Negative); Hyaline Casts NONE SEEN /LPF (0-2); Ketones 15 (Negative); Leukocyte Esterase Trace (Negative); Nitrite Negative (Negative); Protein,Urine Dip 30 (Negative); RBC 0-2 /HPF (0-5); Specific Gravity 1.025 (1.005-1.030)
[2024-02-12 16:36] LABS: ADD URINE CULTURE? YES (NO)
[2024-02-12 16:38] LABS: ISTAT CREA 0.8 mg/dL (0.6-1.3); ISTAT K 3.7 mmol/L (3.5-4.9); ISTAT iCA 1.11 mmol/L (1.12-1.32)
[2024-02-12] MEDS ORDERED: Hydromorphone 1 mg/ml Injection ONE (16:38)
[2024-02-12] MEDS ORDERED: Zofran 4 MG/2 ML VIAL ONE (16:38)
[2024-02-12] MEDS: Zofran 4 MG/2 ML VIAL IV ONE (16:40)
[2024-02-12] MEDS: Hydromorphone 1 mg/ml Injection IV ONE (16:40)
[2024-02-12 16:43] LABS: HCG SERUM TEST NEGATIVE (NEGATIVE)
[2024-02-12 17:13] VITALS: BP 104/61
[2024-02-12] MEDS ORDERED: ROCEPHIN 1 GM / 100 ML NaCl 1 GM/100 ML IVPB IV ONE (17:43)
[2024-02-12] MEDS: ROCEPHIN 1 GM / 100 ML NaCl 1 GM/100 ML IVPB IV ONE (17:46)
[2024-02-12 18:05] VITALS: PULSE 97; RESP 15; O2SAT 97
[2024-02-12 22:09] LABS: ALBUMIN 4.3 g/dL (3.5-5.0); ANION GAP 15.7 MEQ/L (5-15); BILIRUBIN,TOTAL 0.7 mg/dL (0.2-1.3); Calcium 9.8 mg/dL (8.4-10.2); Creatinine 1 0.76 mg/dL (0.52-1.04); EST GLOMERULAR FILTRATION RATE 100.3 ML/MIN; Potassium 3.9 mmol/L (3.5-5.1); Total Protein 7.5 g/dL (6.3-8.2)
--- NOTE | 2024-02-13 08:33 | XRAY ---
Indication: Enlarged painful uterus. Two-dimensional transvaginal pelvic sonogram performed. Comparison: July 16, 2023 Uterus again anteverted and enlarged measuring 11.7 x 7.7 x 8.4 cm. Again multiple uterine fibroids, largest posterior mid uterus measuring 6.0 x 4.8 x 7.1 cm. Endometrial stripe is obscured. No obvious endometrial cavity mass or fluid collection. Left ovary measures 2.0 x 2.0 x 2.6 cm and demonstrates normal follicular cysts and perfusion. Nonvisualization right ovary. No suspicious adnexal mass or free fluid. Impression: Again uterine leiomyomatosis with largest fibroid measured above. Nonvisualization right ovary. Comment: Preliminary report was given.
== END 2024-02-12 18:53 | disposition home or self-care (01) ==
LOC: ED 15:34
DX: N39.0 Urinary tract infection, site not specified (principal); E86.0 Dehydration; D72.829 Elevated white blood cell count, unspecified; R10.30 Lower abdominal pain, unspecified; D39.0 Neoplasm of uncertain behavior of uterus; Z79.891 Long term (current) use of opiate analgesic; Z79.899 Other long term (current) drug therapy; Z72.0 Tobacco use
CPT/HCPCS: 36000; 36415; 76830; 80047; 80053; 81001; 82150; 83690; 84703; 85025; 87086; 96365; 96374; 96375; 99284; J0696; J1170; J2405

== ENCOUNTER 2024-03-24 08:33 | Observation (INO) | payer OTHER ==
[2024-03-24] MEDS ORDERED: CEFAZOLIN 2 GM/100 ML NaCl 2 GM/100 ML IVPB IV SCH (08:45)
[2024-03-24 08:54] LABS: HCG URINE TEST NEGATIVE (NEGATIVE)
[2024-03-24] MEDS ORDERED: Lactated Ringers 1,000 ML IV SCH (09:00)
[2024-03-24] MEDS: TYLENOL EXTRA STRENGTH 500 MG PO ONE (09:28)
[2024-03-24] MEDS: NEURONTIN PO ONE (09:28)
[2024-03-24] MEDS: celeBREX 100 MG PO ONE (09:28)
[2024-03-24] MEDS ORDERED: Pepcid 20 MG VIAL IV ONE (09:32)
[2024-03-24] MEDS ORDERED: Transderm Scop 1.5MG Patch ONE (09:32)
[2024-03-24] MEDS ORDERED: Reglan 10 MG/2 ML ONE (09:32)
[2024-03-24] MEDS: Reglan 10 MG/2 ML IV ONE (09:34)
[2024-03-24] MEDS: Transderm Scop 1.5MG Patch TOP PRN (09:34)
[2024-03-24] MEDS: Pepcid 20 MG VIAL IV ONE (09:35)
[2024-03-24] MEDS: Decadron 4 MG PO ONE (09:36)
[2024-03-24 09:43] LABS: Absolute Neutrophil Ct (ANC) 4.87 x10^3/uL (1.56-6.13); BASOPHIL % 0.3 % (0.1-1.2); Basophil (Absolute #) 0.02 x10^3/uL (0.01-0.08); Eosinophil % 1.7 % (0.7-5.8); Eosinophil (Absolute #) 0.11 x10^3/uL (0.04-0.36); Hematocrit 33.3 % (34.1-44.9); Hemoglobin 10.2 g/dL (11.2-15.7); IMMATURE GRAN # 0.02 x10^3u/L (0.001-0.031); IMMATURE GRAN % 0.3 % (0.001-0.429); Lymphocyte (Absolute #) 1.17 x10^3/uL (1.18-3.74); Lymphocytes % 17.6 % (19.3-51.7); Mean Cell Volume 84.5 fL (79.4-94.8); Mean Corpuscular Hemoglobin 25.9 pg (25.6-32.2); Mean Corpuscular Hgb Concent. 30.6 g/dL (32.2-35.5); Mean Platelet Volume 10.5 fL (9.4-12.3); Monocyte (Absolute #) 0.47 x10^3/uL (0.24-0.86); Monocytes % 7.1 % (4.7-12.5); Platelet Count 268 x10^3/uL (182-369); Red Blood Count 3.94 x10^6/uL (3.93-5.22); Red Cell Distribution Width 18.2 % (11.7-14.4); White Blood Count 6.7 x10^3/uL (3.98-10.04)
[2024-03-24] MEDS: FLAGYL 500 MG IVPB 500 MG/100 ML BAG IV ONE (09:51)
[2024-03-24 10:00] LABS: ALBUMIN 4.3 g/dL (3.5-5.0); ANION GAP 14.1 MEQ/L (5-15); BILIRUBIN,TOTAL 0.3 mg/dL (0.2-1.3); Calcium 9.5 mg/dL (8.4-10.2); Creatinine 1 0.72 mg/dL (0.52-1.04); Potassium 4.1 mmol/L (3.5-5.1); Total Protein 7.3 g/dL (6.3-8.2)
[2024-03-24] MEDS ORDERED: Lactated Ringers 1,000 ML IV ONE ×2 (11:01→13:05)
[2024-03-24] MEDS ORDERED: Sensorcaine 0.25% 10 ML ONE (11:08)
[2024-03-24] MEDS ORDERED: TORAdol 30 mg Injection ONE (11:51)
[2024-03-24] MEDS ORDERED: SUBLIMAZE 100 MCG/2 ML ONE (13:04)
[2024-03-24] MEDS ORDERED: ROCURONIUM BROMIDE IV ONE (13:04)
[2024-03-24] MEDS ORDERED: BRIDION 200MG/2ML IV ONE (13:04)
[2024-03-24] MEDS ORDERED: Versed 2 MG/2 ML Injection ONE (13:04)
[2024-03-24] MEDS ORDERED: Zofran 4 MG/2 ML VIAL ONE ×2 (13:04)
[2024-03-24] MEDS ORDERED: DEXMEDETOMIDINE 80 MCG/20ML-NS IV ONE (13:04)
[2024-03-24] MEDS ORDERED: Xylocaine-Mpf 2% 5 Ml Vial ONE (13:04)
[2024-03-24] MEDS ORDERED: DIPRIVAN 200 MG/20 ML IV ONE (13:04)
[2024-03-24] MEDS ORDERED: PHENYLEPHRINE HCL ONE (13:04)
[2024-03-24] MEDS ORDERED: Astramorph-Pf 5 MG/10 ML ONE (13:04)
[2024-03-24] MEDS ORDERED: Ephedrine Sulfate 50 MG/ML ONE (13:07)
[2024-03-24] MEDS ORDERED: Marcaine Mpf 0.5% Vial 30 Ml ONE (13:13)
[2024-03-24] MEDS ORDERED: EXPAREL 133 MG/10 ML VIAL IJ ONE (13:13)
[2024-03-24 13:21] LABS: ABO TYPING A; Antibody Screen NEGATIVE (NEGATIVE); RH TYPING POSITIVE
[2024-03-24] MEDS ORDERED: Zofran 4 MG/2 ML VIAL IV PRN ×2 (15:48→16:00)
[2024-03-24] MEDS ORDERED: TORAdol 30 mg Injection IV PRN (15:49)
[2024-03-24] MEDS ORDERED: MORPHINE SULFATE 2 MG INJ IV PRN (16:00)
[2024-03-24] MEDS ORDERED: Nubain 10 MG/ML IV PRN (16:00)
[2024-03-24] MEDS ORDERED: Sodium Chloride 0.9% 10 ML FLUSH Syringe IJ PRN (16:00)
[2024-03-24] MEDS ORDERED: MEDICATION INTERVENTION MC SCH (16:00)
[2024-03-24] MEDS ORDERED: Narcan 0.4 MG/ML IV PRN (16:00)
[2024-03-24] MEDS ORDERED: DEMEROL 50 MG IV PRN (16:00)
[2024-03-24] MEDS ORDERED: PERCOCET TABLET 5/325MG PO PRN (16:00)
[2024-03-24] MEDS ORDERED: NON-FORMULARY ITEM (Ferrous Gluconate [Ferrous Gluconate] 324 MG Tablet) PO SCH (16:00)
[2024-03-24] MEDS ORDERED: BENADRYL 50 MG/ML IV PRN (16:00)
[2024-03-24] MEDS: CLARITIN 10 MG PO PRN (16:10)
[2024-03-24] MEDS: Mylicon 80MG PO SCH (16:11)
[2024-03-24] MEDS: Reglan 10 MG/2 ML IV SCH (16:11)
[2024-03-24] MEDS: CEFAZOLIN 2 GM/100 ML NaCl 2 GM/100 ML IVPB IV SCH (16:11)
[2024-03-24 16:21] LABS: Appearance Clear (Clear); Bacteria None Seen /HPF (None Seen); Bilirubin Negative (Negative); Blood Negative (Negative); Epithelial Cells Rare /HPF (None Seen); Glucose, Urine Negative (Negative); Ketones Negative (Negative); Leukocyte Esterase Negative (Negative); Nitrite Negative (Negative); Protein,Urine Dip Negative (Negative); RBC 0-2 /HPF (0-5); Specific Gravity 1.025 (1.005-1.030); Urobilinogen 0.2 mg/dL (0.2); WBC 0-2 /HPF (0-5)
[2024-03-24] MEDS ORDERED: Zocor 10MG PO SCH (17:00)
[2024-03-24 18:07] LABS: Hematocrit 30.8 % (34.1-44.9); Hemoglobin 9.4 g/dL (11.2-15.7); Mean Cell Volume 85.3 fL (79.4-94.8); Mean Corpuscular Hgb Concent. 30.5 g/dL (32.2-35.5); Mean Platelet Volume 10.2 fL (9.4-12.3); Platelet Count 252 x10^3/uL (182-369); Red Blood Count 3.61 x10^6/uL (3.93-5.22); White Blood Count 16.4 x10^3/uL (3.98-10.04)
[2024-03-24] MEDS: Lactated Ringers 1,000 ML IV SCH (20:11)
[2024-03-24] MEDS: Docusate Sodium 100 MG PO SCH (22:06)
[2024-03-24] MEDS: Zocor 10MG PO SCH (22:07)
[2024-03-25 05:13] LABS: Hematocrit 28.5 % (34.1-44.9); Hemoglobin 8.6 g/dL (11.2-15.7); Mean Cell Volume 86.1 fL (79.4-94.8); Mean Corpuscular Hgb Concent. 30.2 g/dL (32.2-35.5); Mean Platelet Volume 11.2 fL (9.4-12.3); Platelet Count 264 x10^3/uL (182-369); Red Blood Count 3.31 x10^6/uL (3.93-5.22); Red Cell Distribution Width 18.3 % (11.7-14.4); White Blood Count 18.3 x10^3/uL (3.98-10.04)
[2024-03-25 06:01] LABS: ALBUMIN 3.6 g/dL (3.5-5.0); ANION GAP 14.7 MEQ/L (5-15); BILIRUBIN,TOTAL 0.1 mg/dL (0.2-1.3); Calcium 9.1 mg/dL (8.4-10.2); Creatinine 1 0.74 mg/dL (0.52-1.04); EST GLOMERULAR FILTRATION RATE 103.5 ML/MIN; Potassium 3.8 mmol/L (3.5-5.1); Total Protein 6.2 g/dL (6.3-8.2)
--- NOTE | 2024-03-25 08:01 | PCM.NOTE ---
Date and Time: 03/25/24 0758 Subjective Assessment: pod 1 sp abdominal supracervical hysterectomy pt resting in bed and doing well able to ambulate and tolerate diet. vss afebrile abd; soft incision c/d/intact ext; no clubbing cyanosis or edema hgb; 8.6 a/p sp supracervical abdominal hysterectomy b/l salpingectomy, hyperglycemia will order hgb aic will anticipate discharge today should fu with provider for eval of elevated glucose level should fu in off ice in 2 wks Objective Exam Wound Assessment: Skin/Wound Assessment Wound/Incision Assessment Start: 03/24/24 14:17 Text: Status: Active Freq: Q4H Protocol: Document 03/25/24 04:00 STEPHON (Rec: 03/25/24 04:14 MP [id number]) Wound/Incision Assessment Lower Anterior Abdomen Wound Assessment Shift Assessment Wound Type Incision Wound Stage Non Pressure Wound Drainage Amount None Comment OPEN TO AIR Objective Data Vital Signs: Vital Signs - 24 hr Temp Pulse Resp BP Pulse Ox 03/25/24 04:00 96.8 F 77 16 98/48 98 03/25/24 00:00 16 03/24/24 20:00 16 03/24/24 18:57 97 03/24/24 18:30 97.8 F 60 16 86/51 96 03/24/24 17:30 97.2 F 72 18 101/51 97 03/24/24 16:37 95 03/24/24 16:30 96.9 F 59 L 16 88/52 93 L 03/24/24 16:00 97.4 F 78 16 113/70 95 03/24/24 15:30 97.2 F 66 16 95/61 91 L 03/24/24 15:15 97.6 F 68 16 95/58 92 L 03/24/24 15:00 97.4 F 70 16 113/70 96 03/24/24 09:00 99.0 F 76 16 114/71 97 Intake and Output: Intake & Output 03/22/24 03/23/24 03/24/24 03/25/24 11:59 11:59 11:59 11:59 Intake Total 240 Output Total 300 Balance -60 Weight 80 kg 82.6 kg Lab Results: Lab Results-Last 24 Hours 03/24/24 03/24/24 03/24/24 Range/Units 09:36 09:36 12:30 WBC 6.7 (3.98-10.04) x10^3/uL RBC 3.94 (3.93-5.22) x10^6/uL Hgb 10.2 L (11.2-15.7) g/dL Hct 33.3 L (34.1-44.9) % MCV 84.5 (79.4-94.8) fL MCH 25.9 (25.6-32.2) pg MCHC 30.6 L (32.2-35.5) g/dL RDW 18.2 H (11.7-14.4) % Plt Count 268 (182-369) x10^3/uL MPV 10.5 (9.4-12.3) fL Gran % 73.0 H (34.0-71.1) % Immature Gran % (Auto) 0.3 (0.001-0.429) % Nucleat RBC Rel Count 0.0 (0.00-0.2) % Eos # (Auto) 0.11 (0.04-0.36) x10^3/uL Immature Gran # (Auto) 0.02 (0.001-0.031) x10^3u/L Absolute Lymphs (auto) 1.17 L (1.18-3.74) x10^3/uL Absolute Monos (auto) 0.47 (0.24-0.86) x10^3/uL Absolute Nucleated RBC 0.00 (0.00-0.012) x10^3u/L Lymphocytes % 17.6 L (19.3-51.7) % Monocytes % 7.1 (4.7-12.5) % Eosinophils % 1.7 (0.7-5.8) % Basophils % 0.3 (0.1-1.2) % Absolute Granulocytes 4.87 (1.56-6.13) x10^3/uL Basophils # 0.02 (0.01-0.08) x10^3/uL Sodium 141 (135-145) mmol/L Potassium 4.1 (3.5-5.1) mmol/L Chloride 110 H (98-107) mmol/L Carbon Dioxide 21 L (22-30) mmol/L Anion Gap 14.1 (5-15) MEQ/L BUN 14 (7-17) mg/dL Creatinine 0.72 (0.52-1.04) mg/dL Estimated GFR 107.0 ML/MIN Glucose 108 H (74-106) mg/dL Calcium 9.5 (8.4-10.2) mg/dL Total Bilirubin 0.30 (0.2-1.3) mg/dL AST 24 (14-36) U/L ALT 23 (0-35) U/L Alkaline Phosphatase 67 (38-126) U/L Serum Total Protein 7.3 (6.3-8.2) g/dL Albumin 4.3 (3.5-5.0) g/dL Urine Color (Yellow) Urine Appearance (Clear) Urine pH (4.6-8.0) Ur Specific [place] (1.005-1.030) Urine Protein (Negative) Urine Glucose (UA) (Negative) mg/dL Urine Ketones (Negative) Urine Blood (Negative) Urine Nitrite (Negative) Urine Bilirubin (Negative) Urine Urobilinogen (0.2) mg/dL Ur Leukocyte Esterase (Negative) U Hyaline Cast (Auto) (0-2) /LPF Urine Microscopic RBC (0-5) /HPF Urine Microscopic WBC (0-5) /HPF Ur Epithelial Cells (None Seen) /HPF Urine Bacteria (None Seen) /HPF Urine Culture Reflexed (NO) Urine HCG, Qual (NEGATIVE) ABO Group A Rh Factor POSITIVE Antibody Screen NEGATIVE (NEGATIVE) 03/24/24 03/24/24 03/24/24 Range/Units 13:08 18:00 Unknown WBC 16.4 H (3.98-10.04) x10^3/uL RBC 3.61 L (3.93-5.22) x10^6/uL Hgb 9.4 L (11.2-15.7) g/dL Hct 30.8 L (34.1-44.9) % MCV 85.3 (79.4-94.8) fL MCH 26.0 (25.6-32.2) pg MCHC 30.5 L (32.2-35.5) g/dL RDW 18.0 H (11.7-14.4) % Plt Count 252 (182-369) x10^3/uL MPV 10.2 (9.4-12.3) fL Gran % (34.0-71.1) % Immature Gran % (Auto) (0.001-0.429) % Nucleat RBC Rel Count (0.00-0.2) % Eos # (Auto) (0.04-0.36) x10^3/uL Immature Gran # (Auto) (0.001-0.031) x10^3u/L Absolute Lymphs (auto) (1.18-3.74) x10^3/uL Absolute Monos (auto) (0.24-0.86) x10^3/uL Absolute Nucleated RBC (0.00-0.012) x10^3u/L Lymphocytes % (19.3-51.7) % Monocytes % (4.7-12.5) % Eosinophils % (0.7-5.8) % Basophils % (0.1-1.2) % Absolute Granulocytes (1.56-6.13) x10^3/uL Basophils # (0.01-0.08) x10^3/uL Sodium (135-145) mmol/L Potassium (3.5-5.1) mmol/L Chloride (98-107) mmol/L Carbon Dioxide (22-30) mmol/L Anion Gap (5-15) MEQ/L BUN (7-17) mg/dL Creatinine (0.52-1.04) mg/dL Estimated GFR ML/MIN Glucose (74-106) mg/dL Calcium (8.4-10.2) mg/dL Total Bilirubin (0.2-1.3) mg/dL AST (14-36) U/L ALT (0-35) U/L Alkaline Phosphatase (38-126) U/L Serum Total Protein (6.3-8.2) g/dL Albumin (3.5-5.0) g/dL Urine Color Yellow (Yellow) Urine Appearance Clear (Clear) Urine pH 5.0 (4.6-8.0) Ur Specific [place] 1.025 (1.005-1.030) Urine Protein Negative (Negative) Urine Glucose (UA) Negative (Negative) mg/dL Urine Ketones Negative (Negative) Urine Blood Negative (Negative) Urine Nitrite Negative (Negative) Urine Bilirubin Negative (Negative) Urine Urobilinogen 0.2 (0.2) mg/dL Ur Leukocyte Esterase Negative (Negative) U Hyaline Cast (Auto) 3-5 A (0-2) /LPF Urine Microscopic RBC 0-2 (0-5) /HPF Urine Microscopic WBC 0-2 (0-5) /HPF Ur Epithelial Cells Rare (None Seen) /HPF Urine Bacteria None Seen (None Seen) /HPF Urine Culture Reflexed NO (NO) Urine HCG, Qual NEGATIVE (NEGATIVE) ABO Group Rh Factor Antibody Screen (NEGATIVE) 03/25/24 03/25/24 Range/Units 04:23 04:23 WBC 18.3 H (3.98-10.04) x10^3/uL RBC 3.31 L (3.93-5.22) x10^6/uL Hgb 8.6 L (11.2-15.7) g/dL Hct 28.5 L (34.1-44.9) % MCV 86.1 (79.4-94.8) fL MCH 26.0 (25.6-32.2) pg MCHC 30.2 L (32.2-35.5) g/dL RDW 18.3 H (11.7-14.4) % Plt Count 264 (182-369) x10^3/uL MPV 11.2 (9.4-12.3) fL Gran % (34.0-71.1) % Immature Gran % (Auto) (0.001-0.429) % Nucleat RBC Rel Count (0.00-0.2) % Eos # (Auto) (0.04-0.36) x10^3/uL Immature Gran # (Auto) (0.001-0.031) x10^3u/L Absolute Lymphs (auto) (1.18-3.74) x10^3/uL Absolute Monos (auto) (0.24-0.86) x10^3/uL Absolute Nucleated RBC (0.00-0.012) x10^3u/L Lymphocytes % (19.3-51.7) % Monocytes % (4.7-12.5) % Eosinophils % (0.7-5.8) % Basophils % (0.1-1.2) % Absolute Granulocytes (1.56-6.13) x10^3/uL Basophils # (0.01-0.08) x10^3/uL Sodium 139 (135-145) mmol/L Potassium 3.8 (3.5-5.1) mmol/L Chloride 107 (98-107) mmol/L Carbon Dioxide 20 L (22-30) mmol/L Anion Gap 14.7 (5-15) MEQ/L BUN 16 (7-17) mg/dL Creatinine 0.74 (0.52-1.04) mg/dL Estimated GFR 103.5 ML/MIN Glucose 192 H (74-106) mg/dL Calcium 9.1 (8.4-10.2) mg/dL Total Bilirubin 0.10 L (0.2-1.3) mg/dL AST 46 H (14-36) U/L ALT 48 H (0-35) U/L Alkaline Phosphatase 58 (38-126) U/L Serum Total Protein 6.2 L (6.3-8.2) g/dL Albumin 3.6 (3.5-5.0) g/dL Urine Color (Yellow) Urine Appearance (Clear) Urine pH (4.6-8.0) Ur Specific [place] (1.005-1.030) Urine Protein (Negative) Urine Glucose (UA) (Negative) mg/dL Urine Ketones (Negative) Urine Blood (Negative) Urine Nitrite (Negative) Urine Bilirubin (Negative) Urine Urobilinogen (0.2) mg/dL Ur Leukocyte Esterase (Negative) U Hyaline Cast (Auto) (0-2) /LPF Urine Microscopic RBC (0-5) /HPF Urine Microscopic WBC (0-5) /HPF Ur Epithelial Cells (None Seen) /HPF Urine Bacteria (None Seen) /HPF Urine Culture Reflexed (NO) Urine HCG, Qual (NEGATIVE) ABO Group Rh Factor Antibody Screen (NEGATIVE) Assessment/Plan (1) H/O abdominal supracervical subtotal hysterectomy Current Visit: Yes Status: Acute Code(s): Z90.711 - ACQUIRED ABSENCE OF UTERUS WITH REMAINING CERVICAL STUMP (2) Chronic anemia Current Visit: Yes Status: Acute Code(s): D64.9 - ANEMIA, UNSPECIFIED (3) Fibroid uterus Current Visit: Yes Status: Acute Code(s): D25.9 - LEIOMYOMA OF UTERUS, UNSPECIFIED
--- NOTE | 2024-03-25 08:06 | PCM.DS ---
Discharge Summary Date of Admission: 03/24/24 08:33 Admitting Physician: ANA LILIA CORNEJO DO Primary Care Provider: ABBEY SHEA Allergies Allergies ferrous sulfate Allergy (Severe, Verified 03/24/24 08:56) breathing difficulties Hospital Summary - Hospital Course Hospital Course: pt admitted on mar 24 for undergoing abdominal supracervical hysterectomy b/l salpingectomy secondary to symptomatic fibroid uterus and underwent procedure without complication. during postop evaluation, incision c/d/intact, hgb 8.6 and stable where preop was 10. pt taking iron gulconate at home and will continue taking twice daily for the next month. pt able to ambulate and tolerate diet. labs evaluated and was noted having elevated glucose to 192 and will fu with primary care provider for evaluation. will order hgb aic prior to discharge today. pt will be given percocet for pain management 20 tabs and prophylactic antibiotics augmentin 875 bid for 3 days. all questions answered to her satisfaction and will call me for any issues that may arise once discharged. she will fu in 2 wks for postop care. - Vitals & Intake/Output Vital Signs: Vital Signs Temperature 96.8 F 03/25/24 04:00 Pulse Rate 77 03/25/24 04:00 Respiratory Rate 16 03/25/24 04:00 Blood Pressure 98/48 03/25/24 04:00 O2 Sat by Pulse Oximetry 98 03/25/24 04:00 Intake & Output: Intake & Output 03/22/24 03/23/24 03/24/24 03/25/24 11:59 11:59 11:59 11:59 Intake Total 240 Output Total 300 Balance -60 Weight 80 kg 82.6 kg - Lab Result Diagrams: 03/25/24 04:23 03/25/24 04:23 Lab Results-Last 24 Hrs: Lab Results-Last 24 Hours 03/24/24 03/24/24 03/24/24 Range/Units 09:36 09:36 12:30 WBC 6.7 (3.98-10.04) x10^3/uL RBC 3.94 (3.93-5.22) x10^6/uL Hgb 10.2 L (11.2-15.7) g/dL Hct 33.3 L (34.1-44.9) % MCV 84.5 (79.4-94.8) fL MCH 25.9 (25.6-32.2) pg MCHC 30.6 L (32.2-35.5) g/dL RDW 18.2 H (11.7-14.4) % Plt Count 268 (182-369) x10^3/uL MPV 10.5 (9.4-12.3) fL Gran % 73.0 H (34.0-71.1) % Immature Gran % (Auto) 0.3 (0.001-0.429) % Nucleat RBC Rel Count 0.0 (0.00-0.2) % Eos # (Auto) 0.11 (0.04-0.36) x10^3/uL Immature Gran # (Auto) 0.02 (0.001-0.031) x10^3u/L Absolute Lymphs (auto) 1.17 L (1.18-3.74) x10^3/uL Absolute Monos (auto) 0.47 (0.24-0.86) x10^3/uL Absolute Nucleated RBC 0.00 (0.00-0.012) x10^3u/L Lymphocytes % 17.6 L (19.3-51.7) % Monocytes % 7.1 (4.7-12.5) % Eosinophils % 1.7 (0.7-5.8) % Basophils % 0.3 (0.1-1.2) % Absolute Granulocytes 4.87 (1.56-6.13) x10^3/uL Basophils # 0.02 (0.01-0.08) x10^3/uL Sodium 141 (135-145) mmol/L Potassium 4.1 (3.5-5.1) mmol/L Chloride 110 H (98-107) mmol/L Carbon Dioxide 21 L (22-30) mmol/L Anion Gap 14.1 (5-15) MEQ/L BUN 14 (7-17) mg/dL Creatinine 0.72 (0.52-1.04) mg/dL Estimated GFR 107.0 ML/MIN Glucose 108 H (74-106) mg/dL Calcium 9.5 (8.4-10.2) mg/dL Total Bilirubin 0.30 (0.2-1.3) mg/dL AST 24 (14-36) U/L ALT 23 (0-35) U/L Alkaline Phosphatase 67 (38-126) U/L Serum Total Protein 7.3 (6.3-8.2) g/dL Albumin 4.3 (3.5-5.0) g/dL Urine Color (Yellow) Urine Appearance (Clear) Urine pH (4.6-8.0) Ur Specific [place] (1.005-1.030) Urine Protein (Negative) Urine Glucose (UA) (Negative) mg/dL Urine Ketones (Negative) Urine Blood (Negative) Urine Nitrite (Negative) Urine Bilirubin (Negative) Urine Urobilinogen (0.2) mg/dL Ur Leukocyte Esterase (Negative) U Hyaline Cast (Auto) (0-2) /LPF Urine Microscopic RBC (0-5) /HPF Urine Microscopic WBC (0-5) /HPF Ur Epithelial Cells (None Seen) /HPF Urine Bacteria (None Seen) /HPF Urine Culture Reflexed (NO) Urine HCG, Qual (NEGATIVE) ABO Group A Rh Factor POSITIVE Antibody Screen NEGATIVE (NEGATIVE) 03/24/24 03/24/24 03/24/24 Range/Units 13:08 18:00 Unknown WBC 16.4 H (3.98-10.04) x10^3/uL RBC 3.61 L (3.93-5.22) x10^6/uL Hgb 9.4 L (11.2-15.7) g/dL Hct 30.8 L (34.1-44.9) % MCV 85.3 (79.4-94.8) fL MCH 26.0 (25.6-32.2) pg MCHC 30.5 L (32.2-35.5) g/dL RDW 18.0 H (11.7-14.4) % Plt Count 252 (182-369) x10^3/uL MPV 10.2 (9.4-12.3) fL Gran % (34.0-71.1) % Immature Gran % (Auto) (0.001-0.429) % Nucleat RBC Rel Count (0.00-0.2) % Eos # (Auto) (0.04-0.36) x10^3/uL Immature Gran # (Auto) (0.001-0.031) x10^3u/L Absolute Lymphs (auto) (1.18-3.74) x10^3/uL Absolute Monos (auto) (0.24-0.86) x10^3/uL Absolute Nucleated RBC (0.00-0.012) x10^3u/L Lymphocytes % (19.3-51.7) % Monocytes % (4.7-12.5) % Eosinophils % (0.7-5.8) % Basophils % (0.1-1.2) % Absolute Granulocytes (1.56-6.13) x10^3/uL Basophils # (0.01-0.08) x10^3/uL Sodium (135-145) mmol/L Potassium (3.5-5.1) mmol/L Chloride (98-107) mmol/L Carbon Dioxide (22-30) mmol/L Anion Gap (5-15) MEQ/L BUN (7-17) mg/dL Creatinine (0.52-1.04) mg/dL Estimated GFR ML/MIN Glucose (74-106) mg/dL Calcium (8.4-10.2) mg/dL Total Bilirubin (0.2-1.3) mg/dL AST (14-36) U/L ALT (0-35) U/L Alkaline Phosphatase (38-126) U/L Serum Total Protein (6.3-8.2) g/dL Albumin (3.5-5.0) g/dL Urine Color Yellow (Yellow) Urine Appearance Clear (Clear) Urine pH 5.0 (4.6-8.0) Ur Specific [place] 1.025 (1.005-1.030) Urine Protein Negative (Negative) Urine Glucose (UA) Negative (Negative) mg/dL Urine Ketones Negative (Negative) Urine Blood Negative (Negative) Urine Nitrite Negative (Negative) Urine Bilirubin Negative (Negative) Urine Urobilinogen 0.2 (0.2) mg/dL Ur Leukocyte Esterase Negative (Negative) U Hyaline Cast (Auto) 3-5 A (0-2) /LPF Urine Microscopic RBC 0-2 (0-5) /HPF Urine Microscopic WBC 0-2 (0-5) /HPF Ur Epithelial Cells Rare (None Seen) /HPF Urine Bacteria None Seen (None Seen) /HPF Urine Culture Reflexed NO (NO) Urine HCG, Qual NEGATIVE (NEGATIVE) ABO Group Rh Factor Antibody Screen (NEGATIVE) 11/06/24 11/06/24 Range/Units 04:23 04:23 WBC 18.3 H (3.98-10.04) x10^3/uL RBC 3.31 L (3.93-5.22) x10^6/uL Hgb 8.6 L (11.2-15.7) g/dL Hct 28.5 L (34.1-44.9) % MCV 86.1 (79.4-94.8) fL MCH 26.0 (25.6-32.2) pg MCHC 30.2 L (32.2-35.5) g/dL RDW 18.3 H (11.7-14.4) % Plt Count 264 (182-369) x10^3/uL MPV 11.2 (9.4-12.3) fL Gran % (34.0-71.1) % Immature Gran % (Auto) (0.001-0.429) % Nucleat RBC Rel Count (0.00-0.2) % Eos # (Auto) (0.04-0.36) x10^3/uL Immature Gran # (Auto) (0.001-0.031) x10^3u/L Absolute Lymphs (auto) (1.18-3.74) x10^3/uL Absolute Monos (auto) (0.24-0.86) x10^3/uL Absolute Nucleated RBC (0.00-0.012) x10^3u/L Lymphocytes % (19.3-51.7) % Monocytes % (4.7-12.5) % Eosinophils % (0.7-5.8) % Basophils % (0.1-1.2) % Absolute Granulocytes (1.56-6.13) x10^3/uL Basophils # (0.01-0.08) x10^3/uL Sodium 139 (135-145) mmol/L Potassium 3.8 (3.5-5.1) mmol/L Chloride 107 (98-107) mmol/L Carbon Dioxide 20 L (22-30) mmol/L Anion Gap 14.7 (5-15) MEQ/L BUN 16 (7-17) mg/dL Creatinine 0.74 (0.52-1.04) mg/dL Estimated GFR 103.5 ML/MIN Glucose 192 H (74-106) mg/dL Calcium 9.1 (8.4-10.2) mg/dL Total Bilirubin 0.10 L (0.2-1.3) mg/dL AST 46 H (14-36) U/L ALT 48 H (0-35) U/L Alkaline Phosphatase 58 (38-126) U/L Serum Total Protein 6.2 L (6.3-8.2) g/dL Albumin 3.6 (3.5-5.0) g/dL Urine Color (Yellow) Urine Appearance (Clear) Urine pH (4.6-8.0) Ur Specific [place] (1.005-1.030) Urine Protein (Negative) Urine Glucose (UA) (Negative) mg/dL Urine Ketones (Negative) Urine Blood (Negative) Urine Nitrite (Negative) Urine Bilirubin (Negative) Urine Urobilinogen (0.2) mg/dL Ur Leukocyte Esterase (Negative) U Hyaline Cast (Auto) (0-2) /LPF Urine Microscopic RBC (0-5) /HPF Urine Microscopic WBC (0-5) /HPF Ur Epithelial Cells (None Seen) /HPF Urine Bacteria (None Seen) /HPF Urine Culture Reflexed (NO) Urine HCG, Qual (NEGATIVE) ABO Group Rh Factor Antibody Screen (NEGATIVE) - Procedures and Test Procedures and Tests throughout Hospitalization: Therapy Orders & Screens 03/24/24 09:53 EKG STAT Comment: 03/24/24 15:00 Incentive Spirometry ROUTINE Comment: post op Diagnosis: Fibroid Uterus Oxygen Nasal Cannula 3 lpm Comment: post op Diagnosis: Fibroid Uterus 03/24/24 15:59 Smoking Cessation Education ONCE Comment: Diagnosis: Fibroid Uterus Smoking Status: Current every day smoker How long have you smoked: quit 2008 Have you smoked in the past 12 months: No Approximately how many cigarettes per day: 1 ppd Do you dip or chew tobacco: No Discharge Exam Wound Assessment: Skin/Wound Assessment Wound/Incision Assessment Start: 03/24/24 14:17 Text: Status: Active Freq: Q4H Protocol: Document 03/25/24 04:00 MP (Rec: 03/25/24 04:14 MP [id number]) Wound/Incision Assessment Lower Anterior Abdomen Wound Assessment Shift Assessment Wound Type Incision Wound Stage Non Pressure Wound Drainage Amount None Comment OPEN TO AIR Final Diagnosis/Problem List - Final Discharge Diagnosis/Problem (1) H/O abdominal supracervical subtotal hysterectomy Current Visit: Yes Status: Acute Code(s): Z90.711 - ACQUIRED ABSENCE OF UTERUS WITH REMAINING CERVICAL STUMP (2) Chronic anemia Current Visit: Yes Status: Acute Code(s): D64.9 - ANEMIA, UNSPECIFIED (3) Fibroid uterus Current Visit: Yes Status: Acute Code(s): D25.9 - LEIOMYOMA OF UTERUS, UNSPECIFIED - Discharge Disposition: Home, Self-Care Condition: Stable Prescriptions: No Action Atorvastatin Calcium 10 mg PO DAILY Ergocalciferol (Vitamin D2) [Vitamin D2] 1,250 mcg PO WEEKLY Ferrous Gluconate 324 mg PO UD Follow up with: ABBEY SHEA [Primary Care Provider] - 5 Days (should fu with primary care provider for evaluation of elevated glucose to 192 on postoperative day one where it was 106 preoperatively. hgb aic was drawn prior to discharge) ANA LILIA CORNEJO DO [ACTIVE STAFF] - 2 weeks (should fu in office in 2 wks should keep incision clean and dry should call me for any issues that may arise upon discharge no heavy lifting no intercourse may take shower but no bath no driving for 1 wk)
[2024-03-25] MEDS: HOLD NARCOTIC ANALGESICS AND SEDATIVES X24 HR MC SCH (09:05)
[2024-03-25] MEDS: ENOXAPARIN SODIUM SQ SCH (09:05)
[2024-03-25 11:23] VITALS: BP 97/55; PULSE 59; TEMP 97.9; O2SAT 94
[2024-03-25 12:10] VITALS: RESP 17
--- NOTE | 2024-03-27 10:22 | OP ---
SURGERY DATE/TIME: 03/24/2024 [id number] PREOPERATIVE DIAGNOSIS: Symptomatic fibroid uterus. POSTOPERATIVE DIAGNOSIS: Symptomatic fibroid uterus. PROCEDURE: Abdominal supracervical hysterectomy with bilateral salpingectomy. SURGEON: William Malloy D.O. HEALTH SCIENCES PROGRAM COORDINATOR: Jacqueline Hill. ANESTHESIA: General. ESTIMATED BLOOD LOSS: 100 mL. COMPLICATIONS: None. DESCRIPTION OF PROCEDURE AND FINDINGS: The risks, benefits, indications, and alternatives of the procedure were reviewed with the patient prior to the procedure. The patient understood the risks of infection, bleeding, bowel injury, bladder injury, ureteral injury, pelvic infection, and thromboembolic disorder associated with the surgery and desired to have this surgery as a possible means to alleviate her current medical condition. At this point, patient was taken to the operating room and given general sedation, placed in a supine position where general anesthesia was given, prepped and draped in the usual sterile fashion. A Pfannenstiel incision was made approximately 2 cm above the symphysis pubis and extended sharply through the rectus fascia. The fascia was then incised bilaterally with curved Craig scissors and the muscles of the anterior abdominal wall were in the midline by sharp and blunt dissection. The peritoneum was then grasped between 2 pickups, elevated and entered sharply with the Metzenbaum scissors. The pelvis was then examined and was noted to be approximately 15-week size with multiple fibroids that were noted. The O'Bony-O'Barrios retractor was placed into the incision. At this point, a tenaculum was then used to elevate the uterus. A LigaSure was then used and clamp over the left uteroovarian ligament where it was clamped, coagulated and cut and taken down to the left round ligament to the uterine vasculature where it too was skeletonized and clamped, coagulated and cut in 2 contiguous regions and hemostasis was obtained. Same procedure was performed on the right side where the right uteroovarian ligament was clamped, coagulated, and cut with a LigaSure, taken down through the round ligament where it too was clamped, coagulated and cut towards the uterine vasculature where it was skeletonized and it too was clamped, coagulated and cut and hemostasis was obtained. A bladder flap was developed on both sides. From this point, the bipolar instrument rn home health was used to amputate the cervix from its cervical stump and was done so without complication and a 0 Vicryl suture was used to close the cervical stump region and hemostasis was obtained. From this point, pelvis was then irrigated copiously with normal saline. The bilateral fallopian tubes were elevated and the LigaSure was used to excise the fallopian tubes along the mesosalpinx and was done so without complication and hemostasis was obtained bilaterally. From this point, all laps, sponges and instruments were removed from the patient's abdomen. The fascia was closed with running 0 Vicryl suture. Hemostasis was obtained. The subcutaneous layer was closed with 3-0 Vicryl and the skin was closed with absorbable mile called Insorb. Sponge, lap, needle, and instrument counts were correct x2. The patient was then taken to the recovery room in stable condition.
[2024-03-30] MEDS ORDERED: VITAMIN D2 PO SCH (10:00)
== END 2024-03-25 12:51 | disposition home or self-care (01) ==
LOC: MED SURG 08:33 → EDSTATUS 13:25
PROVIDERS: ADMIT Obstetrics & Gynecology; ATTEND Obstetrics & Gynecology
DX: D25.9 Leiomyoma of uterus, unspecified (principal); D64.9 Anemia, unspecified; Z79.899 Other long term (current) drug therapy
CPT/HCPCS: 36415; 58180; 80053; 81001; 81025; 83036; 85025; 85027; 86850; 86900; 86901; 93005; 94762; G0378; J0690; J1650; J1885; J2250; J2274; J2371; J2405; J2704; J3010; L0625; A9270-GY